=== PATIENT | female | born 1970 | race African-American/Black ===

== ENCOUNTER 2019-04-30 17:49 | Emergency (ER) | payer OTHER ==
[~2019-04-30] VITALS: Ht 157.5 cm; Wt 90.7 kg
[~2019-04-30 17:49] MED LIST: CHLORTHALIDONE25 MG PO; CLEOCIN HCL150 M1 PO; MOBIC15 MG PO; NORVASC5 MG PO; UNICOMPLEX M TA1 TA1 PO
[2019-04-30] MEDS ORDERED: NORCO 5-325 TA1 EAC1 PO (19:25)
[2019-04-30 19:49] VITALS: BP 144/88
== END 2019-04-30 19:49 | disposition home or self-care (01) ==
LOC: ER 17:49
DX: M25.562 Pain in left knee (principal); M79.642 Pain in left hand; M25.532 Pain in left wrist; R07.81 Pleurodynia; M25.522 Pain in left elbow; I10 Essential (primary) hypertension; Z88.0 Allergy status to penicillin; Z88.8 Allergy status to other drugs, medicaments and biological substances; W00.0XXA Fall on same level due to ice and snow, initial encounter; Y92.89 Other specified places as the place of occurrence of the external cause; Y93.89 Activity, other specified; Y99.0 Civilian activity done for income or pay